=== PATIENT | male | born 1980 | race Caucasian/White ===

== ENCOUNTER 2017-08-22 14:15 | Emergency (ER) | payer MEDICAID ==
[~2017-08-22] VITALS: Ht 185.4 cm; Wt 81.8 kg
[2017-08-22] MEDS ORDERED: LIDOcaine 1.5% w/epinephrine 1:200,000 5ml ampul IJ ONE (14:25)
[2017-08-22] MEDS ORDERED: TETanus/Pertussis (Acell)/Diphther VAC/PF (Tdap-Adult) 0.5ml syringe IM ONE (14:25)
[2017-08-22] MEDS ORDERED: iohexol 350MG/ML 100ml bottle IV ONE (14:31)
[2017-08-22 14:37] LABS: BASOPHILS % (AUTO) 0.3 % (0-1); EOSINOPHILS # (AUTO) 0.1 X10'3 (0-0.9); HEMATOCRIT 40.2 % (42.0-52.0); HEMOGLOBIN 13.9 g/dl (14.0-17.9); LYMPHOCYTES # (AUTO) 2.3 X10'3 (1.1-4.8); LYMPHOCYTES % (AUTO) 33.8 % (21-51); MEAN CORPUSCULAR HEMOGLOBIN 28.5 PG (27.0-31.0); MEAN CORPUSCULAR HGB CONC 34.6 % (33.0-36.5); MEAN CORPUSCULAR VOLUME 82.4 FL (78-98); MEAN PLATELET VOLUME 6.5 FL (7.4-10.4); MONOCYTES # (AUTO) 0.5 X10'3 (0-0.9); MONOCYTES % (AUTO) 8.1 % (2-12); NEUTROPHILS # (AUTO) 3.8 X10'3 (1.8-7.7); NEUTROPHILS % (AUTO) 56.8 % (42-75); PLATELET COUNT 194 X10'3 (140-440); RED BLOOD COUNT 4.88 X10'6 (4.70-6.10); RED CELL DISTRIBUTION WIDTH 13.8 % (11.5-14.5); WHITE BLOOD COUNT 6.7 X10'3 (4.5-11.0)
[2017-08-22 14:54] LABS: ALANINE AMINOTRANSFERASE 73 U/L (12-78); ALBUMIN 3.6 G/DL (3.4-5.0); ALBUMIN/GLOBULIN RATIO 0.8 (1.1-1.5); ALKALINE PHOSPHATASE 128 IU/L (46-116); ANION GAP 9 (8-16); ASPARTATE AMINO TRANSFERASE 48 U/L (10-37); BILIRUBIN,TOTAL 0.4 MG/DL (0.1-1.0); BLOOD UREA NITROGEN 20 MG/DL (7-18); BUN/CREATININE RATIO 17.7 (5.4-32.0); CALCIUM 8.9 MG/DL (8.5-10.1); CHLORIDE 104 MMOL/L (99-107); CREATININE 1.13 MG/DL (0.60-1.10); SODIUM 140 MMOL/L (135-145); TOTAL CARBON DIOXIDE 27.4 MMOL/L (24-32); TOTAL PROTEIN 8.4 G/DL (6.4-8.2); eGFR 73 ML/MIN
[2017-08-22 14:55] LABS: GLUCOSE 141 MG/DL (70-104); POTASSIUM 4.5 MMOL/L (3.5-5.1)
[2017-08-22] MEDS ORDERED: HYDROcodone/acetaminophen 10/325mg tab PO ONE (14:55)
[2017-08-22 15:06] LABS: PARTIAL THROMBOPLASTIN TIME 25 SECONDS (22-32); PROTHROMBIN TIME 10.1 SECONDS (9.0-12.0)
[2017-08-22 16:05] VITALS: BP 126/81
== END 2017-08-22 16:22 | disposition home or self-care (01) ==
LOC: EEVIPCON 14:16 → ER 14:16
DX: S31.114A Laceration without foreign body of abdominal wall, left lower quadrant without penetration into peritoneal cavity, initial encounter (principal); S61.412A Laceration without foreign body of left hand, initial encounter; S51.812A Laceration without foreign body of left forearm, initial encounter; F17.200 Nicotine dependence, unspecified, uncomplicated; F11.10 Opioid abuse, uncomplicated; X99.9XXA Assault by unspecified sharp object, initial encounter; Y93.89 Activity, other specified; Y92.89 Other specified places as the place of occurrence of the external cause; Y99.8 Other external cause status
CPT/HCPCS: 12004; 12032; 36415; 71045; 74177; 80053; 85025; 85610; 85730; 86885; 86900; 86901; 90471; 90715; 99285; A6449; J3490; J7030; Q9967

== ENCOUNTER 2018-02-05 22:40 | Emergency (ER) | payer MEDICAID ==
[~2018-02-05] VITALS: Ht 185.4 cm; Wt 86.3 kg
[~2018-02-05 22:40] MED LIST: NO HOME MEDS
[2018-02-05] MEDS ORDERED: CefTRIAXone 250MG IM Kit w/LIDOcaine IM ONE (23:00)
[2018-02-05] MEDS ORDERED: azithromycin 250mg tablet PO ONE (23:00)
[2018-02-05] MEDS ORDERED: metroNIDAZOLE 500mg tablet PO ONE (23:00)
[2018-02-06 00:05] VITALS: BP 122/78
== END 2018-02-06 00:10 | disposition home or self-care (01) ==
LOC: ER 22:41
DX: R36.9 Urethral discharge, unspecified (principal); F11.90 Opioid use, unspecified, uncomplicated; Z20.2 Contact with and (suspected) exposure to infections with a predominantly sexual mode of transmission
CPT/HCPCS: 96372; 99283; J0696; J3490

== ENCOUNTER 2020-04-02 02:48 | Emergency (ER) | payer MEDICAID ==
[~2020-04-02] VITALS: Ht 185.4 cm; Wt 81.8 kg
[2020-04-02] MEDS ORDERED: rabies vaccine (PCEC)/PF 2.5 unit kit IMVAC ONE (04:00)
[2020-04-02] MEDS ORDERED: AMOX-422 PO (04:02)
[2020-04-02] MEDS ORDERED: CefTRIAXone 1000mg IM Kit (w/lidocaine diluent) IM ONE (04:05)
[2020-04-02 04:50] VITALS: BP 123/86
== END 2020-04-02 04:52 | disposition home or self-care (01) ==
LOC: ER 02:49
DX: S61.241A Puncture wound with foreign body of left index finger without damage to nail, initial encounter (principal); L03.012 Cellulitis of left finger; F11.90 Opioid use, unspecified, uncomplicated; Z79.2 Long term (current) use of antibiotics; W54.0XXA Bitten by dog, initial encounter; Y93.89 Activity, other specified; Y92.89 Other specified places as the place of occurrence of the external cause; Y99.8 Other external cause status
CPT/HCPCS: 90471; 90675; 90715; 96372; 99284; J0696

== ENCOUNTER 2022-02-04 13:06 | Emergency (ER) | payer MEDICAID ==
[~2022-02-04] VITALS: Ht 185.4 cm; Wt 97.7 kg
[2022-02-04 13:13] VITALS: BP 140/86
[2022-02-04] MEDS ORDERED: AMOX-117 PO (13:40)
[2022-02-04] MEDS ORDERED: IBUP-1984 PO (13:40)
[2022-02-04] MEDS ORDERED: METR-159 PO (13:40)
== END 2022-02-04 13:58 | disposition home or self-care (01) ==
LOC: ER 13:06
DX: K04.7 Periapical abscess without sinus (principal); K12.2 Cellulitis and abscess of mouth
CPT/HCPCS: 99283

== ENCOUNTER 2023-03-20 06:35 | Emergency (ER) | payer MEDICAID ==
[~2023-03-20] VITALS: Ht 185.4 cm; Wt 96.4 kg
[2023-03-20 06:41] VITALS: BP 139/92; PULSE 94; RESP 18; TEMP 98; O2SAT 98
[2023-03-20] MEDS ORDERED: CLIN-97 PO (07:27)
[2023-03-20] MEDS ORDERED: CHLO118M PO (07:27)
== END 2023-03-20 07:57 | disposition home or self-care (01) ==
LOC: ER 06:36
DX: K02.9 Dental caries, unspecified (principal); K05.00 Acute gingivitis, plaque induced
CPT/HCPCS: 99283

== ENCOUNTER 2023-12-31 14:59 | Emergency (ER) | payer MEDICAID ==
[~2023-12-31] VITALS: Ht 185.4 cm; Wt 90.9 kg
[2023-12-31 14:59] VITALS: TEMP 97.9
[~2023-12-31 14:59] MED LIST changes: +CHLO118M PO; +CLIN-97 PO
[2023-12-31] MEDS: LIDOcaine 1% W/epiNEPHrine 1:100,000 20ml vial SQ ONE (16:20)
[2023-12-31] MEDS ORDERED: CEPH-585 PO (17:01)
[2023-12-31 17:15] VITALS: BP 126/87; PULSE 75; RESP 18; O2SAT 100
== END 2023-12-31 17:12 | disposition home or self-care (01) ==
LOC: ER 14:59
DX: S61.411A Laceration without foreign body of right hand, initial encounter (principal); Z79.2 Long term (current) use of antibiotics; Z79.899 Other long term (current) drug therapy; W25.XXXA Contact with sharp glass, initial encounter; Y93.89 Activity, other specified; Y92.89 Other specified places as the place of occurrence of the external cause; Y99.8 Other external cause status
CPT/HCPCS: 12001; 99283; A6258; J3490; A6449